=== PATIENT | female | born 1960 | race Caucasian/White ===

== ENCOUNTER → 2016-10-15 | Outpatient (CLI) | payer BC ==
[~2016-10-15] MED LIST: CLON1TAB3 PO; CYM30 PO; LSX20 PO; NLV/20 PO; OMEP20CA9 PO
[2016-10-15 12:45] LABS: FERRITIN 57.4 ng/ml (8.0-388.0); URIC ACID 5.6 mg/dl (2.6-7.2)
--- NOTE | 2016-10-23 09:41 | CODING QUERY MEDICAL NECESSITY ---
CQSUPPORTING DIAGNOSIS NEEDED A supporting diagnosis is required for the test/procedure performed on this patient in order for us to be reimbursed by the patient's insurance. Please provide a supporting diagnosis for the following test/procedure listed below next to the test name along with your signature. *If there is no additional diagnosis for this patient that would support the following test/procedure please document that below next to the test/procedure. Test(s)/Procedure(s) that require a supporting diagnosis: DOS 10/15/16 VITAMIN D TEST VITAMIN B12 TEST Provider Signature: Date: Thank you Teri Long [facility] Information Management Once completed, please kindly fax back to [phone] For questions please call [phone]
== END | disposition home or self-care (01) ==
LOC: C.LABBFT 10:25
PROVIDERS: ATTEND Internal Medicine
DX: R53.83 Other fatigue (principal); M79.644 Pain in right finger(s); M81.0 Age-related osteoporosis without current pathological fracture

== ENCOUNTER → 2017-03-30 | Outpatient (CLI) | payer BC, MEDICARE, OTHER ==
--- NOTE | 2017-03-30 22:42 | DIAGNOSTIC IMAGING REPORT ---
CERVICAL SPINE MRI HISTORY: M79.609 Pain in [id number] Neck painR20.0 Numbness of hand TECHNIQUE: Multiplanar multisequence MRI of the cervical spine was performed without the use of contrast. COMPARISON STUDY: PET CT 06/27/2015. FINDINGS: Straightening of the cervical spine. Alignment is intact. The visualized posterior fossa is unremarkable. The cervical spinal cord is normal in course, caliber, and signal intensity. Slightly heterogeneous marrow pattern at C4-C6, however, no suspicious osseous lesions identified. The prevertebral soft tissues and C1-C2 interval are intact. Mild to moderate disc space narrowing at C4-C5, C5-C6 and C6-C7. C2-C3: No significant central canal or neural foraminal narrowing. C3-C4: No significant central canal or neural foraminal narrowing. C4-C5: Small broad-based posterior disc osteophyte complex resulting in partial effacement of the anterior thecal sac without cord deformity. There is mild left-sided neural foraminal narrowing. C5-C6: Small broad-based posterior disc osteophyte complex resulting in partial effacement of the anterior thecal sac without cord deformity. There is mild bilateral neural foraminal narrowing. C6-C7: Small broad-based posterior disc osteophyte complex resulting in partial effacement of the anterior thecal sac without cord deformity. There is mild left-sided neural foraminal narrowing. C7-T1: No significant central canal or neural foraminal narrowing. IMPRESSION: 1. Mild to moderate degenerative changes within the mid to lower cervical spine as described above. 2. Straightening of the cervical spine. 3. Normal cervical spinal cord. Electronically signed by: Wm Devlin M.D. 03/31/2017 1:52 PM Dictated Date/Time: 03/30/2017 10:33 PM
== END | disposition home or self-care (01) ==
LOC: C.MRI 18:18
PROVIDERS: ATTEND Internal Medicine
DX: M54.2 Cervicalgia (principal); R20.0 Anesthesia of skin; M79.609 Pain in unspecified limb

== ENCOUNTER → 2018-03-03 | Outpatient (CLI) | payer OTHER ==
[~2018-03-03] MED LIST changes: +CIPR-255 PO; -CLON1TAB3 PO; +CLON1TAB4 PO; +ONDA4TAB10 SL; +OPTIRAY 320 IV PRN
--- NOTE | 2018-03-03 12:17 | DIAGNOSTIC IMAGING REPORT ---
CT ABD/PELVIS IV AND ORAL CONT CLINICAL HISTORY: Diverticulitis. Follow-up examination. COMPARISON STUDY: 01/13/2018 TECHNIQUE: Following the IV administration of 93 mL of Optiray-320, CT scan of the abdomen and pelvis was performed from the lung bases to the proximal femurs. Images are reviewed in the axial, sagittal, and coronal planes. IV contrast was administered without complication. A dose lowering technique was utilized adhering to the principles of ALARA. CT DOSE: FINDINGS: Lower chest: There are bilateral breast implants. There are minor dependent atelectatic changes. There is a stable 3 mm right middle lobe pulmonary nodule. Liver: There is severe hepatic steatosis. Hypodense hepatic lesions remain stable and likely represent cysts. Gallbladder: Surgically absent Spleen: Top normal in size. Pancreas: Unremarkable. Adrenal glands: Unremarkable. Kidneys: There is a 12 mm left renal cyst. Each kidney demonstrates an extrarenal pelvis. No solid renal masses are visualized. Bowel: There are no transition zones to indicate bowel obstruction. There is been interval resolution of the previously identified sigmoid diverticulitis. No acute inflammatory changes are visualized. Peritoneum: There is no intraperitoneal free air or abdominal ascites. Vasculature: The abdominal aorta is normal in course and caliber. Adenopathy: None. Pelvic viscera: The uterus appears surgically absent Skeletal structures: No destructive osseous lesions are seen. IMPRESSION: 1. Interval resolution of the previously identified sigmoid diverticulitis 2. Hepatic steatosis. Stable hepatic hypodense lesions likely representing cysts. 3. No evidence of bowel obstruction. No evidence of free air. No acute inflammatory changes. Electronically signed by: Rod Hernandez M.D. 03/03/2018 12:16 PM Dictated Date/Time: 03/03/2018 12:07 PM
== END | disposition home or self-care (01) ==
LOC: C.CTS 12:07
PROVIDERS: ATTEND Physician Assistant Medical
DX: R93.8 Abnormal findings on diagnostic imaging of other specified body structures (principal); K76.0 Fatty (change of) liver, not elsewhere classified

== ENCOUNTER 2021-11-21 13:17 | Inpatient (IN) ==
[2021-11-21 14:01] LABS: Basophils # (auto) 0.02 K/uL (0-0.2); Basophils % (auto) 0.2 %; Eosinophils # (auto) 0.15 K/uL (0-0.5); Eosinophils % (auto) 1.3 %; Hematocrit (blood only) 42.5 % (37-47); Hemoglobin 14.4 g/dL (12.0-16.0); Immature Granulocytes # (auto) 0.03 K/uL (0.00-0.02); Immature Granulocytes % (auto) 0.3 %; Lymphocytes # (auto) 1.52 K/uL (1.2-3.4); Lymphocytes % (auto) 13.4 %; Mean Corpuscular Hemoglobin 29.5 pg (25-34); Mean Corpuscular Hgb Conc 33.9 g/dL (32-36); Mean Corpuscular Volume 87.1 fL (80-100); Monocytes # (auto) 0.73 K/uL (0.11-0.59); Monocytes % (auto) 6.5 %; Neutrophils # (auto) 8.86 K/uL (1.4-6.5); Neutrophils % (auto) 78.3 %; Platelet Count 240 K/uL (130-400); RDW Coefficient of Variation 13.1 % (11.5-14.5); RDW Standard Deviation 42.1 fL (36.4-46.3); Red Blood Count 4.88 M/uL (4.2-5.4); White Blood Count 11.31 K/uL (4.8-10.8)
[2021-11-21 14:30] LABS: Albumin Globulin Ratio 1.2 (0.9-2); Albumin Level 4.7 gm/dl (3.4-5.0); BUN Creatinine Ratio 14.3 (10-20); Bilirubin,Total 1.3 mg/dl (0.2-1.0); Calcium 9.7 mg/dl (8.5-10.1); Creatinine Clr Calc Pharmacy 72.6 ml/min; Est GFR (Non-African American) 69.1 ml/min; Potassium 3.8 mmol/L (3.5-5.1); Total Protein 8.7 gm/dl (6.0-8.3)
[2021-11-21] MEDS ORDERED: KETOROLAC TROMETHAMINE 15 MG/ML VIAL IV STA (15:11)
[2021-11-21] MEDS ORDERED: ONDANSETRON INJ 2 MG/ML 2 ML VIAL IV STA (15:11)
[2021-11-21] MEDS ORDERED: SODIUM CHLORIDE 0.9% 1000ML 1,000 ML IV ONE (15:11)
[2021-11-21] MEDS ORDERED: OPTIRAY 320 100ml IV ONE (15:59)
--- NOTE | 2021-11-21 16:29 | CT Scan Report ---
CT abd pelvis IV con only CLINICAL HISTORY: llq pain . Recent diagnosis of sigmoid diverticulitis COMPARISON STUDY: 11/16/2021 CT DOSE: 769.92 mGy.cm TECHNIQUE: Standard CT of the Abdomen and Pelvis was performed with IV contrast. A dose lowering isaak hnique was utilized adhering to the principles of ALARA. Contrast Volume: Optiray 320, 93 ml. The patient did not receive oral contrast. FINDINGS: Lung base: The lung bases are clear. Abdominal cavity: There is no evidence for abdominal mass, adenopathy or ascites. Liver: Diffuse fatty infiltration of the liver and hepatic cysts are again seen. There is no evidence for enhancing mass lesion. Spleen: There is homogeneous attenuation of the splenic parenchyma. There is no enhancing mass lesion . Pancreas: There is homogeneous attenuation of the pancreatic parenchyma. There is no evidence for mas s lesion or peripancreatic fluid collection. Gall Bladder: Surgical clips are again seen. Adrenal glands: The adrenal glands are normal in size and attenuation. There is no evidence for enhan cing mass lesion. Kidneys: There is homogeneous attenuation of the renal parenchyma bilaterally. There is no evidence f or renal calculus or hydronephrosis. There is no evidence for enhancing mass. There is again evidence for left renal cyst. Bowel: Compared to the previous examination, there is slight worsening of sigmoid diverticulitis with increasing pericolonic inflammatory changes and edema. Minimal extraluminal air is seen at this site with no additional free air or abscess formation. No pelvic ascites is seen. The remaining bowel loops are normally placed within the abdomen and pelvis without evidence for dil atation or obstruction. There is no evidence for mass lesion. There is no evidence for free air. Bladder: The bladder is within normal limits with no evidence for focal mass, calculus or diverticulu m. : There is no evidence for pelvic mass or adenopathy. There is no evidence for pelvic ascites. Vasculature: There is no evidence for aneurysmal dilatation of the abdominal aorta. Osseous structures: There is no acute osseous pathology. IMPRESSION: 1. Mild interval worsening of acute sigmoid diverticulitis with increasing inflammatory changes in. S igmoidal edema and fluid. Minimal extraluminal air is seen at this site with no evidence for addition al free air or abscess formation. No free pelvic ascites is identified. ACT 112: Negative or not required by law. Electronically signed by: Adán Baptiste M.D. 11/21/2021 4:28 PM
[2021-11-21] MEDS ORDERED: PIPERACILLIN/TAZOBACTAM 4.5 GM/120 ML BAG IV ONE (16:36)
--- NOTE | 2021-11-21 16:57 | History & Physical Report ---
Date of Service November 21, 2021 Assessment & Plan (1) Sigmoid diverticulitis: Plan: -Failed outpatient Augmentin. -Surgery consulted due to microperforation, no surgical intervention at this time. -Zosyn 4.5 g IV every 8 -N.p.o. for 48 hours, may have ice chips. -Toradol, Tylenol for pain control, patient wishes to avoid opioids due to allergic reactions in the past. -Anti-emetics ordered. -Repeat CBC in AM. (2) Depression: Plan: -Continue duloxetine 30 mg daily when tolerating PO intake. (3) GERD (gastroesophageal reflux disease): Plan: -Continue Pepcid when tolerating PO intake. (4) History of breast cancer: Plan: -Patient has LUE edema, takes Lasix 20 mg daily. -S/P b/l mastectomy. Plan: -Admit to med/surg. -SCDs, lovenox for DVT ppx. -Full Code. History of Present Illness Chief Complaint: worsening abdominal pain x1 days Primary Care Provider: Rodolfo Trinidad MD Patient is a 61-year-old female with a past medical history of depression/anxiety, GERD, breast cancer in 2013 s/p b/l mastectomy with chronic lymphedema and diverticulitis diagnosed in our ED on 11/16 presents with worsening symptoms. Patient was seen here on 11/16 for abdominal pain, CT revealed sigmoid diverticulitis without perforation or abscess. She was given IVF, IV Zofran, IV Zosyn and discharged from ED on Augmentin, also instructed to remain on clear liquid diet for the next several days. Since then, she has been taking her antibiotics with yogurt and sticking to a liquid diet with minimal improvement Yesterday, she experienced severe cramping sensation across her abdomen. Last evening, she felt very cold and could not get warm with multiple layers of clothing on. She took a temperature around 1 AM, measured at 101.5. This afternoon seemingly out of nowhere she vomited several times, which prompted her presentation to ED for further evaluation. Feels she may have noticed some blood in her stool over the past several days, she reports to have been pretty dark and tarry. She is otherwise without symptoms, no chest pain/palpitations, shortness of breath, cough, diarrhea, constipation, overt hematochezia or hematemesis. In ED, VS stable, wnl. Labs significant for WBC 11.31, otherwise unremarkable. CT A/P showed mild interval worsening of acute sigmoid diverticulitis with increasing inflammatory changes in. Sigmoidal edema and fluid. Minimal extraluminal air is seen at this site with no evidence for additional free air or abscess formation. No free pelvic ascites is identified. Surgery was consulted due to concern for microperforation, hospitalist service consulted for further evaluation and admission. Allergies Allergy/AdvReac Type Severity Reaction Status Date / Time codeine Allergy Unknown ANAPHYLAXIS Verified 11/21/21 16:44 opium tincture Allergy Unknown "BREATHING Verified 11/21/21 16:44 PASSAGE SHUT DOWN" Home Medications Medication Instructions Recorded Confirmed Type duloxetine 30 mg capsule,delayed 30 mg PO DAILY #90 cap 05/02/21 11/21/21 Rx release furosemide 20 mg tablet 20 mg PO QAM #90 tab 05/02/21 11/21/21 Rx ondansetron 4 mg disintegrating 4 mg PO Q6H PRN #20 tab 05/23/21 11/21/21 Rx tablet famotidine 40 mg tablet 40 mg PO BID PRN #180 tab 09/25/21 11/21/21 Rx amoxicillin 875 mg-potassium 1 tab PO BID #20 tab 11/16/21 11/21/21 Rx clavulanate 125 mg tablet Past Med/Surg History Medical History Anxiety Breast cancer 2013 RIGHT, BILATERAL MASTECTOMY AND TAMOXIFEN Depression Encounter for breast reconstruction following mastectomy Fatty liver BORDERLINE, TOLD ABOUT YRS AGO GERD (gastroesophageal reflux disease) GERD (gastroesophageal reflux disease) History of anesthesia reaction PONV AND SEVERE HEADACHES AFTER ANESTHESIA History of cardiac murmur History of kidney stones Hypotension Infected surgical wound PONV (postoperative nausea and vomiting) PTSD (post-traumatic stress disorder) Sepsis Tachycardia Surgical History H/O: hysterectomy History of appendectomy History of cardiac cath AGE 19 (R/O HEART CONDITION, HEART STOPPED DURING CHILDBIRTH) AND 10 YRS AGO (C/P , SWEATING , NUMBNESS/TINGLING ARM) - NO FINDINGS , NO STENTS History of cholecystectomy History of colonoscopy (04/27/17) Dr Camacho, [place], normal, recheck in 5 years History of endoscopy History of mastectomy BILATERAL History of tubal ligation AND REVERSAL S/p breast implant removal (~04/2020) Bilateral Breast Implant Removal With Capsulectomy(Bilateral) - Arcelia Sainz MD Family History Other COPD (chronic obstructive pulmonary disease) Family history of diabetes mellitus Social History Smoking Status: Never smoker Hx Alcohol Use: No Hx Substance Use: No Preferred Language: Citizen Of [place] Communication Ability: Effective 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 Beliefs That Will Affect Care: None marital status: Current Living Situation: Significant Other Feels Safe at Home: Yes Sunscreen Use: No Assistive Devices: Glasses Review of Systems Review of Systems: Constitutional: fever/chills since last evening; no weakness, fatigue, myalgias, anorexia, night sweats Eyes: No diplopia, no worsening or blurred vision ENT: normal hearing, no trouble swallowing Respiratory: No cough, sputum, dyspnea at rest or on exertion Cardiovascular: No chest pain, tightness or palpitations Abdomen: cramping abdominal pain yesterday and today with nausea, vomiting x3; no diarrhea or constipation : Denies dysuria, hematuria, increased urgency/frequency, urinary retention Musculoskeletal: No joint pain, calf pain, swelling Neurologic: No weakness, numbness/tingling, or balance problems Psychiatric: No anxiety or depression Skin: No rash or itch Physical Exam Physical Exam: General: awake, alert, no apparent distress Head: Normocephalic, atraumatic ENT: PERRL, EOMI, no pharyngeal exudate, mucous membranes moist Chest: Clear to auscultation, on room air, no adventitious breath sounds Cardiac: Regular rate and rhythm, no murmur, no JVD, normal peripheral pulses, good capillary refill Abdominal: Tender to palpation in left lower quadrant with radiation to right lower quadrant. Extremities: Normal inspection, no peripheral edema or erythema, calfs nontender to palpation Psych: Normal mood and affect Neuro: AAO x 3, strength intact bilaterally and rated 5/5, no motor deficits, speech is clear, no peripheral sensory deficits Skin: no rash or erythema Results & Data Results & Data ([facility]) Vital Signs (Past 12 Hours) Vital Signs Temp Pulse Pulse Resp BP BP Pulse Ox 11/21/21 15:40 86 20 118/56 L 97 11/21/21 13:21 36.9 C 100 H 18 139/77 94 Laboratory Results Abnormal lab results 11/21/21 11/21/21 Range/Units 13:45 13:45 WBC 11.31 H (4.8-10.8) K/uL MPV 11.0 H (7.4-10.4) fL Neut # (Auto) 8.86 H (1.4-6.5) K/uL [place] # (Auto) 0.73 H (0.11-0.59) K/uL Immature Gran # (Auto) 0.03 H (0.00-0.02) K/uL Total Bilirubin 1.3 H (0.2-1.0) mg/dl Total Protein 8.7 H (6.0-8.3) gm/dl Lipase 4 L (11-82) U/L Diagnostic Findings Abdomen/Pelvis CT 11/21/21 15:12 CT abd pelvis IV con only CLINICAL HISTORY: llq pain . Recent diagnosis of sigmoid diverticulitis COMPARISON STUDY: 11/16/2021 CT DOSE: 769.92 mGy.cm TECHNIQUE: Standard CT of the Abdomen and Pelvis was performed with IV contrast. A dose lowering technique was utilized adhering to the principles of ALARA. Contrast Volume: Optiray 320, 93 ml. The patient did not receive oral contrast. FINDINGS: Lung base: The lung bases are clear. Abdominal cavity: There is no evidence for abdominal mass, adenopathy or ascites. Liver: Diffuse fatty infiltration of the liver and hepatic cysts are again seen. There is no evidence for enhancing mass lesion. Spleen: There is homogeneous attenuation of the splenic parenchyma. There is no enhancing mass lesion. Pancreas: There is homogeneous attenuation of the pancreatic parenchyma. There is no evidence for mass lesion or peripancreatic fluid collection. Gall Bladder: Surgical clips are again seen. Adrenal glands: The adrenal glands are normal in size and attenuation. There is no evidence for enhancing mass lesion. Kidneys: There is homogeneous attenuation of the renal parenchyma bilaterally. There is no evidence for renal calculus or hydronephrosis. There is no evidence for enhancing mass. There is again evidence for left renal cyst. Bowel: Compared to the previous examination, there is slight worsening of sigmoid diverticulitis with increasing pericolonic inflammatory changes and edema. Minimal extraluminal air is seen at this site with no additional free air or abscess formation. No pelvic ascites is seen. The remaining bowel loops are normally placed within the abdomen and pelvis without evidence for dilatation or obstruction. There is no evidence for mass lesion. There is no evidence for free air. Bladder: The bladder is within normal limits with no evidence for focal mass, calculus or diverticulum. : There is no evidence for pelvic mass or adenopathy. There is no evidence for pelvic ascites. Vasculature: There is no evidence for aneurysmal dilatation of the abdominal aorta. Osseous structures: There is no acute osseous pathology. IMPRESSION: 1. Mild interval worsening of acute sigmoid diverticulitis with increasing inflammatory changes in. Sigmoidal edema and fluid. Minimal extraluminal air is seen at this site with no evidence for additional free air or abscess formation. No free pelvic ascites is identified. ACT 112: Negative or not required by law. Electronically signed by: Adán Baptiste M.D. 11/21/2021 4:28 PM Code Status & VTE Plan Code Status Full code. Supervising Physician Co-Signing Physician Notes I personally saw and examined the patient. I verified all reyes points and agree with Mey Hutchison PA-C with the following exceptions and/or additions: 61 yo female admission for abdominal pain for 1 week. Diagnosed with acute diverticulitits and treated as outpatient with oral Augmentin. However due to worsening symptoms starting yesterday with associated fever and chills and vomiting. O/E HS1+2, no murmurs, Chest CTAB, Abd worse LLQ but tender throughout with associated guarding and rebound tenderness A/P Acute diverticulitis with failed outpatient treatment and microperforation - NPO, IVF, Zosyn PG Care Time/CCT Total # of Minutes Spent Total Time Spent with Patient: Total time spent is greater than 50% in coordination of care (as documented) at patient's floor/unit and/or counseling patient: Coding Level of Care Code 73494 Initial Inpt Care Lvl 2 Diagnoses Sigmoid diverticulitis K57.32 Depression F32.9 GERD (gastroesophageal reflux disease) K21.9 History of breast cancer Z85.3
--- NOTE | 2021-11-21 17:51 | Surgery Consultation ---
Date of Consultation November 21, 2021 Assessment & Plan (1) Sigmoid diverticulitis: Patient likely has a contained perforation Would limit her to ice only for 48 hours IV antibiotics for 3 to 4 days If she worsens or we are concerned can repeat her CAT scan We will slowly advance her diet after 48 hours History of Present Illness History of Present Illness 61-year-old female admitted to the emergency room with acute diverticulitis with likely microperforation with no abscess or significant fluid She is also emergency room on the and sent home on antibiotics and bowel rest with clear liquids She said the pain did get significantly worse Repeat cell count is 11.3 Allergies Allergy/AdvReac Type Severity Reaction Status Date / Time codeine Allergy Unknown ANAPHYLAXIS Verified 11/21/21 16:44 opium tincture Allergy Unknown "BREATHING Verified 11/21/21 16:44 PASSAGE SHUT DOWN" Home Medications Medication Instructions Recorded Confirmed Type duloxetine 30 mg capsule,delayed 30 mg PO DAILY #90 cap 05/02/21 11/21/21 Rx release furosemide 20 mg tablet 20 mg PO QAM #90 tab 05/02/21 11/21/21 Rx ondansetron 4 mg disintegrating 4 mg PO Q6H PRN #20 tab 05/23/21 11/21/21 Rx tablet famotidine 40 mg tablet 40 mg PO BID PRN #180 tab 09/25/21 11/21/21 Rx amoxicillin 875 mg-potassium 1 tab PO BID #20 tab 11/16/21 11/21/21 Rx clavulanate 125 mg tablet Patient History Medical History Anxiety Breast cancer 2013 RIGHT, BILATERAL MASTECTOMY AND TAMOXIFEN Depression Encounter for breast reconstruction following mastectomy Fatty liver BORDERLINE, TOLD ABOUT YRS AGO GERD (gastroesophageal reflux disease) GERD (gastroesophageal reflux disease) History of anesthesia reaction PONV AND SEVERE HEADACHES AFTER ANESTHESIA History of cardiac murmur History of kidney stones Hypotension Infected surgical wound PONV (postoperative nausea and vomiting) PTSD (post-traumatic stress disorder) Sepsis Tachycardia Surgical History H/O: hysterectomy History of appendectomy History of cardiac cath AGE 19 (R/O HEART CONDITION, HEART STOPPED DURING CHILDBIRTH) AND 10 YRS AGO (C/P , SWEATING , NUMBNESS/TINGLING ARM) - NO FINDINGS , NO STENTS History of cholecystectomy History of colonoscopy (04/27/17) Dr Camacho, [place], normal, recheck in 5 years History of endoscopy History of mastectomy BILATERAL History of tubal ligation AND REVERSAL S/p breast implant removal (~04/2020) Bilateral Breast Implant Removal With Capsulectomy(Bilateral) - Arcelia Sainz MD Family History Other COPD (chronic obstructive pulmonary disease) Family history of diabetes mellitus Social History Smoking Status: Never smoker Hx Alcohol Use: No Hx Substance Use: No Preferred Language: [place] Communication Ability: Effective Transit Mechanic Required: No Beliefs That Will Affect Care: None marital status: Current Living Situation: Significant Other Feels Safe at Home: Yes Sunscreen Use: No Assistive Devices: Walker Review of Systems Review of Systems: All systems reviewed & are unremarkable except as noted in HPI & below Physical Exam Physical Exam: Patient is awake and alert in no distress Constitutional: well nourished; no acute distress Eyes: + anicteric sclerae Respiratory: normal respiratory effort; no respiratory distress Cardiovascular: Rate/Rhythm: regular rate Gastrointestinal (Abdomen): Inspection/Auscultation: abdomen not distended Patient has tenderness in left lower quadrant Musculoskeletal: Head/Neck/Chest: head atraumatic Skin: no rashes, warm and dry Neurologic: awake Psychiatric: Orientation: alert Results & Data ([facility]) Vital Signs (Past 12 Hours) Vital Signs Temp Pulse Pulse Resp BP BP Pulse Ox 11/21/21 17:30 81 18 84/70 L 97 11/21/21 15:40 86 20 118/56 L 97 11/21/21 13:21 36.9 C 100 H 18 139/77 94 Laboratory Results I reviewed her laboratories Diagnostic Findings I reviewed her CAT scan reports and films PG Care Time/CCT Total # of Minutes Spent Total Time Spent with Patient: Total time spent is greater than 50% in coordination of care (as documented) at patient's floor/unit and/or counseling patient: Coding Level of Care Code 55755 Inpt Consult Level 3 Diagnoses Sigmoid diverticulitis K57.32
--- NOTE | 2021-11-21 18:03 | Emergency Department Note ---
History of Present Illness General Chief Complaint: GI Assessment Stated Complaint: DIVERTICULITIS FARE UP, DIARRHEA, FEVER, Time Seen by Provider: 11/21/21 15:10 History of Present Illness Provider Complaint: abdominal pain Onset (ago): 6 day(s) Pain Consistency: constant Location: LLQ Radiation: none Severity: moderate Maximum Pain Intensity: 4 Current Pain Intensity: 4 Quality: + stabbing and + sharp Relieved By: + nothing Exacerbated By: + nothing Context: + recent antibiotic use (On Augmentin after being diagnosed with diverticulitis on Thursday, 6 days ago. Patient started antibiotics 6 days ago.); no foreign travel, no possible food poisoning, no sick contacts, no recent surgery/procedure or no recent injury Associated Symptoms: + nausea, + vomiting and + fever; no diarrhea, no chills, no constipation, no dysuria, no hematemesis, no hematochezia, no melena, no hematuria, no anorexia, no syncope, no headache, no neck pain, no chest pain and no weakness Home Medications Medication Instructions Recorded Confirmed Type duloxetine 30 mg capsule,delayed 30 mg PO DAILY #90 cap 05/02/21 11/21/21 Rx release furosemide 20 mg tablet 20 mg PO QAM #90 tab 05/02/21 11/21/21 Rx ondansetron 4 mg disintegrating 4 mg PO Q6H PRN #20 tab 05/23/21 11/21/21 Rx tablet famotidine 40 mg tablet 40 mg PO BID PRN #180 tab 09/25/21 11/21/21 Rx amoxicillin 875 mg-potassium 1 tab PO BID #20 tab 11/16/21 11/21/21 Rx clavulanate 125 mg tablet Allergies Allergy/AdvReac Type Severity Reaction Status Date / Time codeine Allergy Unknown ANAPHYLAXIS Verified 11/21/21 16:44 opium tincture Allergy Unknown "BREATHING Verified 11/21/21 16:44 PASSAGE SHUT DOWN" Past Med/Surg History Medical History Anxiety Breast cancer 2013 RIGHT, BILATERAL MASTECTOMY AND TAMOXIFEN Depression Encounter for breast reconstruction following mastectomy Fatty liver BORDERLINE, TOLD ABOUT YRS AGO GERD (gastroesophageal reflux disease) GERD (gastroesophageal reflux disease) History of anesthesia reaction PONV AND SEVERE HEADACHES AFTER ANESTHESIA History of cardiac murmur History of kidney stones Hypotension Infected surgical wound PONV (postoperative nausea and vomiting) PTSD (post-traumatic stress disorder) Sepsis Tachycardia Surgical History H/O: hysterectomy History of appendectomy History of cardiac cath AGE 19 (R/O HEART CONDITION, HEART STOPPED DURING CHILDBIRTH) AND 10 YRS AGO (C/P , SWEATING , NUMBNESS/TINGLING ARM) - NO FINDINGS , NO STENTS History of cholecystectomy History of colonoscopy (04/27/17) [place], normal, recheck in 5 years History of endoscopy History of mastectomy BILATERAL History of tubal ligation AND REVERSAL S/p breast implant removal (~04/2020) Bilateral Breast Implant Removal With Capsulectomy(Bilateral) - Arcelia Sainz MD Family History Other COPD (chronic obstructive pulmonary disease) Family history of diabetes mellitus Social History Smoking Status: Never smoker Hx Alcohol Use: No Hx Substance Use: No Preferred Language: Urdu Communication Ability: Effective Paint 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 Required: No Beliefs That Will Affect Care: None marital status: Current Living Situation: Significant Other Feels Safe at Home: Yes Sunscreen Use: No Assistive Devices: Walker Review of Systems A total of 10 systems reviewed and were otherwise negative Physical Exam Vital Signs: Vital Signs - 24 hr 11/21/21 13:21 11/21/21 15:40 Temperature 36.9 C Temperature Source Oral Pulse Rate 100 H Pulse Rate [Apical ] 86 Respiratory Rate 18 20 Respiratory Effort / Characteristics Non-Labored Sponta neous Respiratory Depth Normal Respiratory Patter n Regular Blood Pressure 139/77 Blood Pressure [Le ft Arm] 118/56 L Blood Pressure Alice n 97 Blood Pressure Alice n [Left Arm] 76 Pulse Oximetry 94 97 Oxygen Delivery Me thod Room Air Room Air Sepsis Recent Feve r Within 48 Hours No Sepsis New/Unexpla ined Change in Men cullen Status No Sepsis Action Take n by Nursing No Action Required Physical Exam: Physical Exam GENERAL: She is oriented to person, place, and time. She appears well-developed and well-nourished. She does not appear distressed. HENT: Exam performed. -Head: Normocephalic and atraumatic. -Right Ear: External ear normal. No mastoid tenderness. -Left Ear: External ear normal. No mastoid tenderness. -Mouth/Throat: The oropharynx is clear and moist. No trismus in the jaw. No dental abscesses or uvula swelling. No oropharyngeal exudate or tonsillar abscesses. EYES: Conjunctivae and EOM are normal. Pupils are equal, round, and reactive to light. Right eye exhibits no discharge. Left eye exhibits no discharge. No scleral icterus. NECK: Normal range of motion. Neck supple. No JVD present. No spinous process tenderness present. No carotid bruit present. No rigidity. No tracheal deviation and normal range of motion present. No Brudzinski's sign and no Kernig's sign noted. CV: Normal rate, regular rhythm, normal heart sounds and intact distal pulses. There is no peripheral edema. Palpable radial pulses bue. PULM/CHEST: Effort normal and breath sounds normal. No respiratory distress. No stridor. She has no wheezes. She has no rales. -Chest Wall: She exhibits no tenderness. ABD: The abdomen is soft. Bowel sounds are normal. She has no distension. No mass is present. There is tenderness to palpation of the left lower quadrant There is no rebound, no guarding, no Harrison's sign and no tenderness at McBurney's point. Rovsig negative MUSC/SKEL: Normal range of motion. There is no peripheral edema, tenderness or deformity. LYMPH: No cervical adenopathy. NEURO: She is alert and oriented to person, place, and time. She has normal strength. No cranial nerve deficit or sensory deficit. Coordination and gait normal. GCS eye subscore is 4. GCS verbal subscore is 5. GCS motor subscore is 6. Cerebellar tests wnl. SKIN: Skin is warm and dry. She is not diaphoretic. PSYCH: She has a normal mood and affect. Behavior is normal. Judgment and thought content normal. Course Course 151: The patient was evaluated in room C12. A complete history and physical exam was performed Cardiac monitoring: An order was placed for continuous cardiac monitoring. The monitor shows a rate of 90 with sinus rhythm 1740: Vital signs stable. Labs within normal limits. Imaging shows a worsening of the diverticulitis with a microperforation. Discussed case with general surgery Dr. Robbins who will evaluate the patient be on consult. Discussed case with [facility] hospitalist Dr. Rai who will admit the patient to his service. Antibiotics ordered for the patient. Administered Medications Acetaminophen (Acetaminophen 1000 Mg/100 Ml Iv) 1,000 mg IV Q8H PRN PRN Reason: Pain or Fever Stop: 11/24/21 20:14 Last Admin: 11/21/21 21:07 Dose: 1,000 mg Documented by: [id number] Enoxaparin Sodium (Enoxaparin Inj 40 Mg/0.4 Ml Syr) 40 mg SQ Q24H YOKASTA Stop: 12/21/21 20:06 Last Admin: 11/21/21 21:14 Dose: 40 mg Documented by: [id number] Lactated Ringer's (Lr) 1,000 mls @ 80 mls/hr IV .[id number] YOKASTA Stop: 12/21/21 18:27 Last Admin: 11/21/21 18:48 Dose: 80 mls/hr Documented by: [id number] Piperacillin Sod/Tazobactam (Sod 3.375 gm/ Dextrose) 115 mls @ 28.75 mls/hr IV Q8 YOKASTA; Protocol Stop: 12/01/21 21:14 Last Admin: 11/21/21 22:13 Dose: 28.8 mls/hr Documented by: [id number] Discontinued Medications Sodium Chloride (Nss 1000ml) 1,000 mls @ 999 mls/hr IV .[id number] ONE Stop: 11/21/21 16:11 Last Infusion: 11/21/21 16:45 Dose: 0 mls/hr Documented by: [id number] Admin: 11/21/21 15:43 Dose: 999 mls/hr Documented by: [id number] Piperacillin Sod/Tazobactam Sod (Zosyn) 4.5 gm in 120 mls @ 240 mls/hr IV NOW ONE Stop: 11/21/21 17:05 Last Infusion: 11/21/21 17:17 Dose: 0 mls/hr Documented by: [id number] Admin: 11/21/21 16:45 Dose: 240 mls/hr Documented by: [id number] Ioversol (Optiray 320 100ml) 93 ml IV ONCE ONE Stop: 11/21/21 16:00 Last Admin: 11/21/21 16:00 Dose: 93 ml Documented by: [id number] Ketorolac Tromethamine (Ketorolac Tromethamine 15 Mg/Ml Vial) 15 mg IV NOW STA Stop: 11/21/21 15:12 Last Admin: 11/21/21 15:45 Dose: 15 mg Documented by: [id number] Ondansetron HCl (Ondansetron Inj 2 Mg/Ml 2 Ml Vial) 4 mg IV NOW STA Stop: 11/21/21 15:12 Last Admin: 11/21/21 15:45 Dose: 4 mg Documented by: [id number] Medical Decision Making Laboratory Data Result diagrams: 11/21/21 13:45 11/21/21 13:45 Lab Results 11/21/21 11/21/21 11/21/21 Range/Units 13:45 13:45 16:51 WBC 11.31 H (4.8-10.8) K/uL RBC 4.88 (4.2-5.4) M/uL Hgb 14.4 (12.0-16.0) g/dL Hct 42.5 (37-47) % MCV 87.1 (80-100) fL MCH 29.5 (25-34) pg MCHC 33.9 (32-36) g/dL RDW Std Deviation 42.1 (36.4-46.3) fL RDW Coeff of Yogesh 13.1 (11.5-14.5) % Plt Count 240 (130-400) K/uL MPV 11.0 H (7.4-10.4) fL Immature Gran % (Auto) 0.3 % Neut % (Auto) 78.3 % Lymph % (Auto) 13.4 % Lee % (Auto) 6.5 % Eos % (Auto) 1.3 % Baso % (Auto) 0.2 % Neut # (Auto) 8.86 H (1.4-6.5) K/uL Lymph # (Auto) 1.52 (1.2-3.4) K/uL Lee # (Auto) 0.73 H (0.11-0.59) K/uL Eos # (Auto) 0.15 (0-0.5) K/uL Baso # (Auto) 0.02 (0-0.2) K/uL Immature Gran # (Auto) 0.03 H (0.00-0.02) K/uL Sodium 136 (136-145) mmol/L Potassium 3.8 (3.5-5.1) mmol/L Chloride 102 (98-107) mmol/L Carbon Dioxide 24 (21-32) mmol/L Anion Gap 10 (3-11) BUN 13 (6-23) mg/dl Creatinine 0.91 (0.6-1.2) mg/dl Est Cr Clr Drug Dosing 72.6 ml/min Est GFR ( Amer) 80.0 ml/min Est GFR (Non-Af Amer) 69.1 ml/min BUN/Creatinine Ratio 14.3 (10-20) Glucose 97 (70-99(Fasting)) mg/dl Calcium 9.7 (8.5-10.1) mg/dl Total Bilirubin 1.3 H (0.2-1.0) mg/dl AST 17 (13-39) U/L ALT 18 (7-52) U/L Alkaline Phosphatase 78 (34-104) U/L Total Protein 8.7 H (6.0-8.3) gm/dl Albumin 4.7 (3.4-5.0) gm/dl Globulin 4.0 (2.5-4.0) gm/dl Albumin/Globulin Ratio 1.2 (0.9-2) Lipase 4 L (11-82) U/L SARS-CoV-2, RNA, NAAT NEGATIVE (NEGATIVE) Imaging Data Radiologist's Impression: Abdomen/Pelvis CT 11/21/21 15:12 CT abd pelvis IV con only CLINICAL HISTORY: llq pain . Recent diagnosis of sigmoid diverticulitis COMPARISON STUDY: 11/16/2021 CT DOSE: 769.92 mGy.cm TECHNIQUE: Standard CT of the Abdomen and Pelvis was performed with IV contrast. A dose lowering technique was utilized adhering to the principles of ALARA. Contrast Volume: Optiray 320, 93 ml. The patient did not receive oral contrast. FINDINGS: Lung base: The lung bases are clear. Abdominal cavity: There is no evidence for abdominal mass, adenopathy or ascites. Liver: Diffuse fatty infiltration of the liver and hepatic cysts are again seen. There is no evidence for enhancing mass lesion. Spleen: There is homogeneous attenuation of the splenic parenchyma. There is no enhancing mass lesion. Pancreas: There is homogeneous attenuation of the pancreatic parenchyma. There is no evidence for mass lesion or peripancreatic fluid collection. Gall Bladder: Surgical clips are again seen. Adrenal glands: The adrenal glands are normal in size and attenuation. There is no evidence for enhancing mass lesion. Kidneys: There is homogeneous attenuation of the renal parenchyma bilaterally. There is no evidence for renal calculus or hydronephrosis. There is no evidence for enhancing mass. There is again evidence for left renal cyst. Bowel: Compared to the previous examination, there is slight worsening of sigmoid diverticulitis with increasing pericolonic inflammatory changes and edema. Minimal extraluminal air is seen at this site with no additional free air or abscess formation. No pelvic ascites is seen. The remaining bowel loops are normally placed within the abdomen and pelvis without evidence for dilatation or obstruction. There is no evidence for mass lesion. There is no evidence for free air. Bladder: The bladder is within normal limits with no evidence for focal mass, calculus or diverticulum. : There is no evidence for pelvic mass or adenopathy. There is no evidence for pelvic ascites. Vasculature: There is no evidence for aneurysmal dilatation of the abdominal aorta. Osseous structures: There is no acute osseous pathology. IMPRESSION: 1. Mild interval worsening of acute sigmoid diverticulitis with increasing inflammatory changes in. Sigmoidal edema and fluid. Minimal extraluminal air is seen at this site with no evidence for additional free air or abscess formation. No free pelvic ascites is identified. ACT 112: Negative or not required by law. Electronically signed by: Adán Baptiste M.D. 11/21/2021 4:28 PM MDM Narrative Vital signs stable. Labs within normal limits. Imaging shows a worsening of the diverticulitis with a microperforation. Discussed case with general surgery Dr. Robbins who will evaluate the patient be on consult. Discussed case with [facility] hospitalist Dr. Rai who will admit the patient to his service. Antibiotics ordered for the patient. Impression & Plan Diverticulitis Discharge Plan Visit Data Chief Complaint: GI Assessment Stated Complaint: DIVERTICULITIS FARE UP, DIARRHEA, FEVER, Discharge Problem: Diverticulitis Patient Disposition: Admitted As Inpatient Discharge Instructions Interventions: ED Discharge Assessment Last Done: 11/21/21 19:58
[2021-11-21] MEDS: LACTATED RINGER'S 1,000 ML IV SCH (18:48)
[2021-11-21] MEDS ORDERED: PIPERACILL/TAZOBAC CONSULT ACTIVE PRN (20:07)
[2021-11-21] MEDS ORDERED: ONDANSETRON INJ 2 MG/ML 2 ML VIAL IV PRN (20:07)
[2021-11-21] MEDS: ACETAMINOPHEN 1000 MG/100 ML IV IV PRN (21:07)
[2021-11-21] MEDS: ENOXAPARIN INJ 40 MG/0.4 ML SYR SQ SCH (21:14)
[2021-11-21] MEDS: PIPERACILLIN/TAZOBACTAM 3.375 GM in DEXTROSE 5% 100 ML IV SCH (22:13)
[2021-11-22] MEDS ORDERED: PIPERACILLIN/TAZOBACTAM 4.5 GM in DEXTROSE 5% 100 ML IV SCH (00:05)
[2021-11-22] MEDS: LACTATED RINGER'S 1,000 ML IV SCH ×2 (05:39→17:03)
[2021-11-22] MEDS: PIPERACILLIN/TAZOBACTAM 3.375 GM in DEXTROSE 5% 100 ML IV SCH ×3 (05:40→21:10)
[2021-11-22 07:53] LABS: Basophils # (auto) 0.02 K/uL (0-0.2); Basophils % (auto) 0.3 %; Eosinophils # (auto) 0.18 K/uL (0-0.5); Eosinophils % (auto) 2.7 %; Hematocrit (blood only) 35.8 % (37-47); Hemoglobin 12.1 g/dL (12.0-16.0); Immature Granulocytes # (auto) 0.01 K/uL (0.00-0.02); Immature Granulocytes % (auto) 0.1 %; Lymphocytes # (auto) 1.12 K/uL (1.2-3.4); Lymphocytes % (auto) 16.6 %; Mean Corpuscular Hemoglobin 29.6 pg (25-34); Mean Corpuscular Hgb Conc 33.8 g/dL (32-36); Mean Corpuscular Volume 87.5 fL (80-100); Mean Platelet Volume 10.9 fL (7.4-10.4); Monocytes # (auto) 0.58 K/uL (0.11-0.59); Monocytes % (auto) 8.6 %; Neutrophils # (auto) 4.84 K/uL (1.4-6.5); Neutrophils % (auto) 71.7 %; Platelet Count 184 K/uL (130-400); Red Blood Count 4.09 M/uL (4.2-5.4); White Blood Count 6.75 K/uL (4.8-10.8)
[2021-11-22] MEDS: DULoxetine HCL 30 MG CAP PO SCH (08:16)
[2021-11-22] MEDS: FAMOTIDINE 20 MG in SYRINGE 3 ML IV SCH (08:16)
[2021-11-22 08:19] LABS: Albumin Globulin Ratio 1.1 (0.9-2); Albumin Level 3.5 gm/dl (3.4-5.0); BUN Creatinine Ratio 15.2 (10-20); Calcium 8.4 mg/dl (8.5-10.1); Creatinine Clr Calc Pharmacy 83.9 ml/min; Est GFR (Non-African American) 81.9 ml/min; Globulin 3.1 gm/dl (2.5-4.0); Potassium 3.7 mmol/L (3.5-5.1); Total Protein 6.6 gm/dl (6.0-8.3)
[2021-11-22] MEDS: ACETAMINOPHEN 325 MG TAB PO PRN (08:20)
[2021-11-22] MEDS ORDERED: FUROSEMIDE 20 MG TAB PO SCH ×2 (09:00)
--- NOTE | 2021-11-22 10:01 | Surgery Progress Note ---
Date of Service November 22, 2021 Assessment & Plan (1) Diverticulitis: Plan: Continue n.p.o. today except ice Possible clear liquids tomorrow and advance very slowly Continue IV antibiotics till at least Thursday or Thursday Dr. Barrow will be following over the weekend Admission and Anticipated Discharge Date Admission Date: November 21, 2021 Subjective Patient awake and alert Pain is somewhat less Vital signs are stable Review of Systems Review of Systems: All systems reviewed & are unremarkable except as noted in HPI & below Physical Exam Physical Exam: Patient's vital signs are stable Awake and alert Pain is mildly better Results & Data ([place]) Vital Signs (Past 12 Hours) Vital Signs Temp Pulse Resp BP Pulse Ox 11/22/21 07:43 36.9 C 17 104/70 94 11/21/21 23:19 36.8 C 73 18 110/71 94 PG Care Time/CCT Total # of Minutes Spent Total Time Spent with Patient: Total time spent is greater than 50% in coordination of care (as documented) at patient's floor/unit and/or counseling patient: Coding Level of Care Code 19218 Inpt Consult Level 2 Diagnoses Diverticulitis K57.92
--- NOTE | 2021-11-22 14:04 | Hospitalist Progress Note ---
Date of Service November 22, 2021 Assessment & Plan (1) Sigmoid diverticulitis: Plan: -Failed outpatient Augmentin. -Appreciate ongoing surgical management - agree with NPO, will d/c ice chips as this is making her pain worse and just use sponge to wet lips and mouth -Zosyn 3.375 g IV every 8 -Tylenol IV for pain control, patient wishes to avoid opioids due to allergic reactions in the past. -Anti-emetics ordered. -Repeat CBC in AM, fortunately WBC resolved with IV antibiotics and NPO status (2) Depression: Plan: -Hold duloxetine 30 mg daily as not yet able to tolerate PO intake. (3) GERD (gastroesophageal reflux disease): Plan: -Famotidine switched to IV while unable to take PO (4) History of breast cancer: Plan: -Patient has LUE edema, hold Lasix due to currently low normal BP -S/P b/l mastectomy. Plan: -Admit to med/surg. -SCDs, lovenox for DVT ppx. -Full Code. Admission and Anticipated Discharge Date Admission Date: November 21, 2021 Subjective No significant change in pain. Notices worsening pain even with ice. No fever or chills. No diarrhea. No nausea or vomiting. Review of Systems Review of Systems: All systems reviewed & are unremarkable except as noted in Subjective Physical Exam Constitutional: WD/WN, vitals as above Respiratory: normal respiratory effort, lungs clear to auscultation Cardiovascular: RRR, no murmur, no edema Gastrointestinal (Abdomen): Inspection/Auscultation: normal bowel sounds Percussion/Palpation: + abdomen tender (lower abdomen with rebound tenderness), + guarding and abdomen soft; abdomen not rigid Musculoskeletal: no cyanosis or clubbing, extremities motor strength 5/5 Skin: no rashes, warm and dry Neurologic: moves all extremities and awake; not confused Psychiatric: A+Ox3, euthymic affect Results & Data Results & Data ([facility]) Vital Signs (Past 12 Hours) Vital Signs Temp Resp BP Pulse Ox 11/22/21 07:43 36.9 C 17 104/70 94 PG Care Time/CCT Total # of Minutes Spent Total Time Spent with Patient: Total time spent is greater than 50% in coordination of care (as documented) at patient's floor/unit and/or counseling patient: Coding Level of Care Code 72764 Subseq Hosp Care Lvl 2 Diagnoses Sigmoid diverticulitis K57.32 Depression F32.9 GERD (gastroesophageal reflux disease) K21.9 History of breast cancer Z85.3
[2021-11-22] MEDS: KETOROLAC TROMETHAMINE 15 MG/ML VIAL IV PRN (16:27)
[2021-11-22] MEDS: ACETAMINOPHEN 1000 MG/100 ML IV IV PRN (21:00)
[2021-11-22] MEDS: ENOXAPARIN INJ 40 MG/0.4 ML SYR SQ SCH (21:09)
[2021-11-23] MEDS: LACTATED RINGER'S 1,000 ML IV SCH ×2 (04:27→19:13)
[2021-11-23] MEDS: PIPERACILLIN/TAZOBACTAM 3.375 GM in DEXTROSE 5% 100 ML IV SCH ×3 (05:33→21:01)
[2021-11-23 06:44] LABS: Basophils # (auto) 0.02 K/uL (0-0.2); Basophils % (auto) 0.3 %; Eosinophils # (auto) 0.22 K/uL (0-0.5); Eosinophils % (auto) 3.7 %; Hematocrit (blood only) 35.8 % (37-47); Hemoglobin 12.2 g/dL (12.0-16.0); Immature Granulocytes # (auto) 0.01 K/uL (0.00-0.02); Immature Granulocytes % (auto) 0.2 %; Lymphocytes # (auto) 1.07 K/uL (1.2-3.4); Lymphocytes % (auto) 18.1 %; Mean Corpuscular Hemoglobin 29.5 pg (25-34); Mean Corpuscular Hgb Conc 34.1 g/dL (32-36); Mean Corpuscular Volume 86.5 fL (80-100); Mean Platelet Volume 10.4 fL (7.4-10.4); Monocytes % (auto) 8.4 %; Neutrophils % (auto) 69.3 %; Platelet Count 169 K/uL (130-400); RDW Coefficient of Variation 12.6 % (11.5-14.5); RDW Standard Deviation 40.1 fL (36.4-46.3); Red Blood Count 4.14 M/uL (4.2-5.4); White Blood Count 5.92 K/uL (4.8-10.8)
[2021-11-23 07:08] LABS: BUN Creatinine Ratio 13.3 (10-20); Calcium 8.3 mg/dl (8.5-10.1); Creatinine Clr Calc Pharmacy 88.4 ml/min; Est GFR (African American) 101.1 ml/min; Est GFR (Non-African American) 87.2 ml/min; Potassium 3.8 mmol/L (3.5-5.1)
[2021-11-23] MEDS: DULoxetine HCL 30 MG CAP PO SCH (07:31)
[2021-11-23] MEDS: FAMOTIDINE 20 MG in SYRINGE 3 ML IV SCH (09:20)
[2021-11-23] MEDS: KETOROLAC TROMETHAMINE 15 MG/ML VIAL IV PRN (09:20)
--- NOTE | 2021-11-23 10:57 | Surgery Progress Note ---
Date of Service November 23, 2021 Assessment & Plan (1) Sigmoid diverticulitis: Plan: Patient here with sigmoid diverticulitis with microperforation WBC 5.9, VSS and pt afebrile Still having some abdominal discomfort Recommend continuing on ice/sips for today given symptoms Continue IV abx Will follow as above. no real improvement yet but has only been 24 hours. continue NPO/IV antibiotics. no urgent indication for surgery. Admission and Anticipated Discharge Date Admission Date: November 21, 2021 Subjective Patient says she is feeling crappy this AM. Still having some belly pain. Physical Exam Physical Exam: awake/alert, no distress Gastrointestinal (Abdomen): Percussion/Palpation: + abdomen tender and abdomen soft Results & Data ([facility]) Vital Signs (Past 12 Hours) Vital Signs Temp Pulse Resp BP Pulse Ox 11/23/21 07:08 36.8 C 74 16 115/75 96 PG Care Time/CCT Total # of Minutes Spent Total Time Spent with Patient: Total time spent is greater than 50% in coordination of care (as documented) at patient's floor/unit and/or counseling patient: Coding Level of Care Code 00949 Subseq Hosp Care Lvl 3 Diagnoses Sigmoid diverticulitis K57.32
--- NOTE | 2021-11-23 15:28 | Hospitalist Progress Note ---
Date of Service November 23, 2021 Assessment & Plan (1) Sigmoid diverticulitis: Plan: -Failed outpatient Augmentin. -Appreciate ongoing surgical management - continue NPO, patient is clinically stable (but not improving with signifiant rebound tenderness present since ad mission) with WBC improving. If clinically not improving by tomorrow will consider repeat CT -May need to consider TPN if she has to remain NPO tomorrow -Continue Zosyn 3.375 g IV every 8 -Tylenol IV for pain control, patient wishes to avoid opioids due to allergic reactions in the past. -Anti-emetics ordered. -Repeat CBC in AM (2) Depression: Plan: -Hold duloxetine 30 mg daily as not yet able to tolerate PO intake. (3) GERD (gastroesophageal reflux disease): Plan: -Famotidine switched to IV while unable to take PO (4) History of breast cancer: Plan: -Patient has LUE edema, hold Lasix due to currently low normal BP -S/P b/l mastectomy. Plan: -Continued admission to med/surg. -SCDs, lovenox for DVT ppx. -Full Code. Admission and Anticipated Discharge Date Admission Date: November 21, 2021 Subjective Ongoing abdominal pain, no worse or better. No longer on ice chips as this was exacerbating pain. No nasuea or vomiting. WBC improving. Review of Systems Review of Systems: All systems reviewed & are unremarkable except as noted in Subjective Physical Exam Constitutional: WD/WN, vitals as above Respiratory: normal respiratory effort, lungs clear to auscultation Cardiovascular: RRR, no murmur, no edema Gastrointestinal (Abdomen): Inspection/Auscultation: normal bowel sounds Percussion/Palpation: + abdomen tender (lower abdomen with rebound tenderness (throughout), worse LLQ), + guarding and abdomen soft; abdomen not rigid Musculoskeletal: no cyanosis or clubbing, extremities motor strength 5/5 Skin: no rashes, warm and dry Neurologic: moves all extremities and awake; not confused Psychiatric: A+Ox3, euthymic affect Results & Data Results & Data ([facility]) Vital Signs (Past 12 Hours) Vital Signs Temp Pulse Resp BP Pulse Ox 11/23/21 14:54 36.9 C 69 16 118/77 97 11/23/21 07:08 36.8 C 74 16 115/75 96 PG Care Time/CCT Total # of Minutes Spent Total Time Spent with Patient: Total time spent is greater than 50% in coordination of care (as documented) at patient's floor/unit and/or counseling patient: Coding Level of Care Code 25206 Subseq Hosp Care Lvl 2 Diagnoses Sigmoid diverticulitis K57.32 Depression F32.9 GERD (gastroesophageal reflux disease) K21.9 History of breast cancer Z85.3
[2021-11-23] MEDS: ACETAMINOPHEN 1000 MG/100 ML IV IV PRN (19:14)
[2021-11-23] MEDS: ENOXAPARIN INJ 40 MG/0.4 ML SYR SQ SCH (21:00)
[2021-11-23] MEDS: DICLOFENAC SOD 1% GEL 100 GM TUBE EXT PRN (21:08)
[2021-11-24] MEDS: PIPERACILLIN/TAZOBACTAM 3.375 GM in DEXTROSE 5% 100 ML IV SCH ×3 (06:09→21:05)
[2021-11-24] MEDS: LACTATED RINGER'S 1,000 ML IV SCH (06:10)
[2021-11-24 07:46] LABS: Basophils # (auto) 0.02 K/uL (0-0.2); Basophils % (auto) 0.3 %; Eosinophils # (auto) 0.18 K/uL (0-0.5); Eosinophils % (auto) 3.1 %; Hematocrit (blood only) 39.1 % (37-47); Hemoglobin 13.4 g/dL (12.0-16.0); Immature Granulocytes # (auto) 0.01 K/uL (0.00-0.02); Immature Granulocytes % (auto) 0.2 %; Lymphocytes # (auto) 1.38 K/uL (1.2-3.4); Lymphocytes % (auto) 23.7 %; Mean Corpuscular Hemoglobin 29.3 pg (25-34); Mean Corpuscular Hgb Conc 34.3 g/dL (32-36); Mean Corpuscular Volume 85.4 fL (80-100); Mean Platelet Volume 11.2 fL (7.4-10.4); Monocytes # (auto) 0.39 K/uL (0.11-0.59); Monocytes % (auto) 6.7 %; Neutrophils # (auto) 3.85 K/uL (1.4-6.5); Platelet Count 246 K/uL (130-400); RDW Coefficient of Variation 12.5 % (11.5-14.5); Red Blood Count 4.58 M/uL (4.2-5.4); White Blood Count 5.83 K/uL (4.8-10.8)
[2021-11-24] MEDS: FAMOTIDINE 20 MG in SYRINGE 3 ML IV SCH (08:10)
[2021-11-24] MEDS: DULoxetine HCL 30 MG CAP PO SCH (08:11)
[2021-11-24 08:15] LABS: BUN Creatinine Ratio 13.2 (10-20); Calcium 8.8 mg/dl (8.5-10.1); Creatinine Clr Calc Pharmacy 97.5 ml/min; Est GFR (Non-African American) 95.7 ml/min; Potassium 3.7 mmol/L (3.5-5.1)
[2021-11-24] MEDS ORDERED: CARBOHYDRATES FOR HYPOGLYCEMIA PO PRN (09:00)
[2021-11-24] MEDS ORDERED: GLUCOSE 10 TABS/TUBE PO PRN (09:00)
[2021-11-24] MEDS ORDERED: DEXTROSE 50% 50 ML SYRINGE IV PRN (09:00)
[2021-11-24] MEDS ORDERED: GLUCAGON FOR INJ 1 MG VIAL SQ PRN (09:00)
[2021-11-24] MEDS ORDERED: GLUCOSE 40% GEL 15 GM TUBE PO PRN (09:00)
--- NOTE | 2021-11-24 09:13 | Hospitalist Progress Note ---
Date of Service November 24, 2021 Assessment & Plan (1) Sigmoid diverticulitis: Plan: -Failed outpatient Augmentin. -Appreciate ongoing surgical management - continue NPO, agree with ice chips and sips ok given abdominal pain improving -Continue Zosyn 3.375 g IV every 8 -Tylenol IV for pain control, Toradol PRN, patient wishes to avoid opioids due to allergic reactions in the past. -Anti-emetics ordered. (2) Hypoglycemia: Plan: Agree with change of IV fluids as ordered by surgery D5W 0.5NSS + 20 meq KCl. Suspect mild anion gap today from starvation ketosis. (3) Depression: Plan: -Restart duloxetine 30 mg daily (4) GERD (gastroesophageal reflux disease): Plan: -Famotidine switched to IV, will switch back to PO once able to take clear liquids (5) History of breast cancer: Plan: -Patient has LUE edema, hold Lasix due to currently low normal BP -S/P b/l mastectomy. Plan: -Continued admission to med/surg. -SCDs, lovenox for DVT ppx. -Full Code. Admission and Anticipated Discharge Date Admission Date: November 21, 2021 Subjective Fortunately she appears to be making some progress today. Abdominal pain less than yesterday. No fever, chills, nausea or vomiting. Review of Systems Review of Systems: All systems reviewed & are unremarkable except as noted in Subjective Physical Exam Constitutional: WD/WN, vitals as above Respiratory: normal respiratory effort, lungs clear to auscultation Cardiovascular: RRR, no murmur, no edema Gastrointestinal (Abdomen): Inspection/Auscultation: normal bowel sounds Percussion/Palpation: + abdomen tender (lower abdomen with rebound tenderness, significantly improved since yesterd), + guarding and abdomen soft; abdomen not rigid Neurologic: moves all extremities and awake; not confused Psychiatric: A+Ox3, euthymic affect Results & Data Results & Data ([facility]) Vital Signs (Past 12 Hours) Vital Signs Temp Pulse Resp BP Pulse Ox 11/24/21 06:47 36.5 C 70 16 116/73 96 11/23/21 21:58 36.6 C 63 16 114/70 96 PG Care Time/CCT Total # of Minutes Spent Total Time Spent with Patient: Total time spent is greater than 50% in coordination of care (as documented) at patient's floor/unit and/or counseling patient: Coding Level of Care Code 01915 Subseq Hosp Care Lvl 2 Diagnoses Sigmoid diverticulitis K57.32 Depression F32.9 GERD (gastroesophageal reflux disease) K21.9 History of breast cancer Z85.3 Hypoglycemia E16.2
--- NOTE | 2021-11-24 09:15 | Surgery Progress Note ---
Date of Service November 24, 2021 Assessment & Plan (1) Diverticulitis: Plan: She is improving clinically however still quite tender. I would recommend continued p.o. another 24 hours. Continue IV antibiotics. Admission and Anticipated Discharge Date Admission Date: November 21, 2021 Subjective Patient seen. Still having suprapubic pain but much improved from yesterday. No new complaints Physical Exam Constitutional: WD/WN, vitals as above no acute distress and not ill appearing Eyes: PERRL, conjunctivae normal, anicteric sclerae EOM intact bilaterally ENMT: external ear and nose normal, oropharynx normal Ears: no hearing impairment Neck: trachea midline, no thyromegaly Respiratory: normal respiratory effort; no respiratory distress and does not use accessory muscles Cardiovascular: Rate/Rhythm: regular rate and regular rhythm Gastrointestinal (Abdomen): Soft. Positive suprapubic tenderness. No peritonitis. Skin: no rashes, warm and dry Psychiatric: Orientation: alert, oriented x 3 and cooperative Results & Data ([facility]) Vital Signs (Past 12 Hours) Vital Signs Temp Pulse Resp BP Pulse Ox 11/24/21 06:47 36.5 C 70 16 116/73 96 11/23/21 21:58 36.6 C 63 16 114/70 96 PG Care Time/CCT Total # of Minutes Spent Total Time Spent with Patient: Total time spent is greater than 50% in coordination of care (as documented) at patient's floor/unit and/or counseling patient: Coding Level of Care Code 85773 Subseq Hosp Care Lvl 2 Diagnoses Diverticulitis K57.92
[2021-11-24] MEDS: D5W AND 1/2NSS + 20MEQ KCL 20 MEQ/1,000 ML BAG IV SCH ×2 (09:45→17:24)
[2021-11-24] MEDS: DICLOFENAC SOD 1% GEL 100 GM TUBE EXT PRN (21:00)
[2021-11-24] MEDS: ACETAMINOPHEN 325 MG TAB PO PRN (21:01)
[2021-11-24] MEDS: ENOXAPARIN INJ 40 MG/0.4 ML SYR SQ SCH (21:02)
[2021-11-25] MEDS: D5W AND 1/2NSS + 20MEQ KCL 20 MEQ/1,000 ML BAG IV SCH ×3 (01:26→18:20)
[2021-11-25] MEDS: PIPERACILLIN/TAZOBACTAM 3.375 GM in DEXTROSE 5% 100 ML IV SCH ×3 (06:18→21:57)
--- NOTE | 2021-11-25 06:48 | Surgery Progress Note ---
Date of Service November 25, 2021 Assessment & Plan (1) Diverticulitis: Plan: Should advance to clear liquids If she does not tolerate will need PPN Continue IV antibiotics Possible reimaging but I do not feel it is necessary at the present time We will advance diet slowly Admission and Anticipated Discharge Date Admission Date: November 21, 2021 Subjective Patient awake and alert with some lower abdominal discomfort but some improvement Passing flatus Review of Systems Review of Systems: All systems reviewed & are unremarkable except as noted in HPI & below Physical Exam Physical Exam: Patient awake and alert Has mild tenderness in the lower abdomen Active bowel sounds Results & Data ([facility]) Vital Signs (Past 12 Hours) Vital Signs Temp Pulse Resp BP Pulse Ox 11/24/21 22:07 37.1 C 64 16 127/61 95 PG Care Time/CCT Total # of Minutes Spent Total Time Spent with Patient: Total time spent is greater than 50% in coordination of care (as documented) at patient's floor/unit and/or counseling patient: Coding Level of Care Code 82139 Subseq Hosp Care Lvl 2 Diagnoses Diverticulitis K57.92
[2021-11-25 06:55] LABS: BUN Creatinine Ratio 6.4 (10-20); Calcium 8.6 mg/dl (8.5-10.1); Est GFR (African American) 96.4 ml/min; Est GFR (Non-African American) 83.2 ml/min; Potassium 3.7 mmol/L (3.5-5.1)
[2021-11-25] MEDS: FAMOTIDINE 20 MG in SYRINGE 3 ML IV SCH (08:43)
[2021-11-25] MEDS: DULoxetine HCL 30 MG CAP PO SCH (08:43)
--- NOTE | 2021-11-25 17:31 | Hospitalist Progress Note ---
Date of Service November 25, 2021 Assessment & Plan (1) Sigmoid diverticulitis: Plan: -Failed outpatient Augmentin. -Appreciate ongoing surgical management - start clear liquid diet today -Continue Zosyn 3.375 g IV every 8 -Tylenol IV for pain control, Toradol PRN, patient wishes to avoid opioids due to allergic reactions in the past. -Anti-emetics ordered. (2) Hypoglycemia: Plan: Agree with change of IV fluids as ordered by surgery D5W 0.5NSS + 20 meq KCl. Suspect mild anion gap today from starvation ketosis. (3) Depression: Plan: -Restart duloxetine 30 mg daily (4) GERD (gastroesophageal reflux disease): Plan: -Famotidine switch back to PO tomorrow (5) History of breast cancer: Plan: -Patient has LUE edema, hold Lasix due to currently low normal BP -S/P b/l mastectomy. Plan: -Continued admission to med/surg. -SCDs, lovenox for DVT ppx. -Full Code. Admission and Anticipated Discharge Date Admission Date: November 21, 2021 Subjective Abdominal pain much improved. Had a bowel movement. No nausea or vomiting. Tolerating small amounts of clear liquid diet this morning. Review of Systems Review of Systems: All systems reviewed & are unremarkable except as noted in Subjective Physical Exam Constitutional: WD/WN, vitals as above Gastrointestinal (Abdomen): Inspection/Auscultation: normal bowel sounds Percussion/Palpation: + abdomen tender (much improved lower abdominal tenderness) and abdomen soft; no guarding and abdomen not rigid Neurologic: moves all extremities and awake; not confused Psychiatric: A+Ox3, euthymic affect Results & Data Results & Data ([facility]) Vital Signs (Past 12 Hours) Vital Signs Temp Pulse Resp BP Pulse Ox 11/25/21 15:47 36.8 C 71 16 127/66 94 11/25/21 07:31 36.5 C 58 L 16 117/76 96 PG Care Time/CCT Total # of Minutes Spent Total Time Spent with Patient: Total time spent is greater than 50% in coordination of care (as documented) at patient's floor/unit and/or counseling patient: Coding Level of Care Code 88638 Subseq Hosp Care Lvl 2 Diagnoses Sigmoid diverticulitis K57.32 Hypoglycemia E16.2 Depression F32.9 GERD (gastroesophageal reflux disease) K21.9 History of breast cancer Z85.3
[2021-11-25] MEDS: ENOXAPARIN INJ 40 MG/0.4 ML SYR SQ SCH (20:15)
[2021-11-26] MEDS: D5W AND 1/2NSS + 20MEQ KCL 20 MEQ/1,000 ML BAG IV SCH (00:40)
[2021-11-26] MEDS: PIPERACILLIN/TAZOBACTAM 3.375 GM in DEXTROSE 5% 100 ML IV SCH ×3 (06:29→21:50)
--- NOTE | 2021-11-26 06:54 | Surgery Progress Note ---
Date of Service November 26, 2021 Assessment & Plan (1) Diverticulitis: Plan: Advance to full liquids and then low fiber Continue IV antibiotics Possible discharge 1 to 2 days depending on progress Admission and Anticipated Discharge Date Admission Date: November 21, 2021 Subjective Tolerating clear liquids with some loose bowel movement Slow improvement in symptoms Results & Data ([facility]) Vital Signs (Past 12 Hours) Vital Signs Temp Pulse Resp BP Pulse Ox 11/25/21 22:58 36.8 C 63 18 104/67 96 PG Care Time/CCT Total # of Minutes Spent Total Time Spent with Patient: Total time spent is greater than 50% in coordination of care (as documented) at patient's floor/unit and/or counseling patient: Coding Level of Care Code 60830 Subseq Hosp Care Lvl 2 Diagnoses Diverticulitis K57.92
--- NOTE | 2021-11-26 08:39 | Hospitalist Progress Note ---
Date of Service November 26, 2021 Assessment & Plan (1) Sigmoid diverticulitis: Plan: -Failed outpatient Augmentin. -Appreciate ongoing surgical management - start full liquid diet today -Continue Zosyn 3.375 g IV every 8 -Tylenol IV for pain control, Toradol PRN, patient wishes to avoid opioids due to allergic reactions in the past. -Anti-emetics ordered. (2) Hypoglycemia: Plan: Agree with change of IV fluids as ordered by surgery D5W 0.5NSS + 20 meq KCl. Suspect mild anion gap today from starvation ketosis. (3) Depression: Plan: -Restarted duloxetine 30 mg daily (4) GERD (gastroesophageal reflux disease): Plan: -Famotidine PO 20mg daily (5) History of breast cancer: Plan: -Patient has LUE edema, hold Lasix due to currently low normal BP -S/P b/l mastectomy. Plan: -Continued admission to med/surg. -SCDs, lovenox for DVT ppx. -Full Code. Admission and Anticipated Discharge Date Admission Date: November 21, 2021 Subjective Improving abdominal pain daily. No nausea or vomiting. Tolerating full liquid diet. Review of Systems Review of Systems: All systems reviewed & are unremarkable except as noted in Subjective Physical Exam Constitutional: WD/WN, vitals as above Gastrointestinal (Abdomen): Inspection/Auscultation: normal bowel sounds Percussion/Palpation: + abdomen tender (mild lower without guarding or rebound) and abdomen soft; no guarding and abdomen not rigid Neurologic: moves all extremities and awake; not confused Psychiatric: A+Ox3, euthymic affect Results & Data Results & Data ([facility]) Vital Signs (Past 12 Hours) Vital Signs Temp Pulse Resp BP Pulse Ox 11/26/21 07:56 36.7 C 59 L 18 103/61 97 11/25/21 22:58 36.8 C 63 18 104/67 96 PG Care Time/CCT Total # of Minutes Spent Total Time Spent with Patient: Total time spent is greater than 50% in coordination of care (as documented) at patient's floor/unit and/or counseling patient: Coding Level of Care Code 17637 Subseq Hosp Care Lvl 1 Diagnoses Sigmoid diverticulitis K57.32 Hypoglycemia E16.2 Depression F32.9 GERD (gastroesophageal reflux disease) K21.9 History of breast cancer Z85.3
[2021-11-26] MEDS: DULoxetine HCL 30 MG CAP PO SCH (08:49)
[2021-11-26] MEDS: FAMOTIDINE 20 MG TAB PO SCH (08:54)
[2021-11-26] MEDS: ENOXAPARIN INJ 40 MG/0.4 ML SYR SQ SCH (20:50)
[2021-11-26] MEDS: ACETAMINOPHEN 325 MG TAB PO PRN (20:53)
[2021-11-27] MEDS: PIPERACILLIN/TAZOBACTAM 3.375 GM in DEXTROSE 5% 100 ML IV SCH ×3 (05:57→21:54)
[2021-11-27] MEDS: ACETAMINOPHEN 325 MG TAB PO PRN (06:01)
[2021-11-27 07:23] LABS: Basophils # (auto) 0.04 K/uL (0-0.2); Basophils % (auto) 0.8 %; Eosinophils # (auto) 0.26 K/uL (0-0.5); Eosinophils % (auto) 5.5 %; Hematocrit (blood only) 38.9 % (37-47); Hemoglobin 13.2 g/dL (12.0-16.0); Immature Granulocytes # (auto) 0.02 K/uL (0.00-0.02); Immature Granulocytes % (auto) 0.4 %; Lymphocytes # (auto) 1.64 K/uL (1.2-3.4); Lymphocytes % (auto) 34.5 %; Mean Corpuscular Hemoglobin 29.7 pg (25-34); Mean Corpuscular Hgb Conc 33.9 g/dL (32-36); Mean Corpuscular Volume 87.4 fL (80-100); Mean Platelet Volume 10.6 fL (7.4-10.4); Monocytes # (auto) 0.37 K/uL (0.11-0.59); Monocytes % (auto) 7.8 %; Neutrophils # (auto) 2.42 K/uL (1.4-6.5); Platelet Count 271 K/uL (130-400); RDW Coefficient of Variation 13.3 % (11.5-14.5); RDW Standard Deviation 42.7 fL (36.4-46.3); Red Blood Count 4.45 M/uL (4.2-5.4); White Blood Count 4.75 K/uL (4.8-10.8)
--- NOTE | 2021-11-27 07:37 | Surgery Progress Note ---
Date of Service November 27, 2021 Assessment & Plan Plan: We will advance to low fiber diet Has information for home-low fiber diet Continue IV antibiotics Possible discharge home tomorrow on Augmentin for additional 10 days Patient will need a colonoscopy -6 to 8 weeks Admission and Anticipated Discharge Date Admission Date: November 21, 2021 Subjective Tolerating full liquids Feeling pretty well No acute changes Physical Exam Physical Exam: Mild distention No worsening tenderness Overall improved Results & Data ([facility]) Vital Signs (Past 12 Hours) Vital Signs Temp Pulse Resp BP Pulse Ox 11/26/21 22:35 36.7 C 63 18 105/68 97 PG Care Time/CCT Total # of Minutes Spent Total Time Spent with Patient: Total time spent is greater than 50% in coordination of care (as documented) at patient's floor/unit and/or counseling patient: Coding Level of Care Code 88597 Subseq Hosp Care Lvl 2
[2021-11-27 07:52] LABS: Calcium 9.3 mg/dl (8.5-10.1); Creatinine Clr Calc Pharmacy 77.1 ml/min; Est GFR (African American) 85.7 ml/min; Est GFR (Non-African American) 73.9 ml/min; Potassium 3.9 mmol/L (3.5-5.1)
[2021-11-27] MEDS: FAMOTIDINE 20 MG TAB PO SCH (09:03)
[2021-11-27] MEDS: DULoxetine HCL 30 MG CAP PO SCH (09:03)
--- NOTE | 2021-11-27 18:10 | Hospitalist Progress Note ---
Date of Service November 27, 2021 Assessment & Plan (1) Sigmoid diverticulitis: Plan: -Failed outpatient Augmentin. -Appreciate ongoing surgical management - start full low fiber diet today -Continue Zosyn 3.375 g IV every 8 -Tylenol IV for pain control, Toradol PRN, patient wishes to avoid opioids due to allergic reactions in the past. -Anti-emetics ordered. (2) Hypoglycemia: Plan: Resolved now eating (3) Depression: Plan: -Restarted duloxetine 30 mg daily (4) GERD (gastroesophageal reflux disease): Plan: -Famotidine PO 20mg daily (5) History of breast cancer: Plan: -Patient has LUE edema, hold Lasix due to currently low normal BP -S/P b/l mastectomy. Plan: -Continued admission to med/surg. -SCDs, lovenox for DVT ppx. -Full Code. Admission and Anticipated Discharge Date Admission Date: November 21, 2021 Subjective Mild increase in abdominal pain after breakfast this morning as her first full meal, did much better with lunch without increase in abdominal pain. No nausea, vomiting. Diarrhea continues right after eating. Review of Systems Review of Systems: All systems reviewed & are unremarkable except as noted in Subjective Physical Exam Constitutional: WD/WN, vitals as above Respiratory: normal respiratory effort, lungs clear to auscultation Cardiovascular: RRR, no murmur, no edema Gastrointestinal (Abdomen): Inspection/Auscultation: normal bowel sounds Percussion/Palpation: + abdomen tender (mild lower without guarding or rebound, worse since yesterday) and abdomen soft; no guarding and abdomen not rigid Musculoskeletal: no cyanosis or clubbing, extremities motor strength 5/5 Skin: no rashes, warm and dry Neurologic: moves all extremities and awake; not confused Psychiatric: A+Ox3, euthymic affect Results & Data Results & Data ([facility]) Vital Signs (Past 12 Hours) Vital Signs Temp Pulse Resp BP Pulse Ox 11/27/21 16:00 36.7 C 69 18 106/66 95 11/27/21 07:33 36.7 C 65 18 119/80 96 PG Care Time/CCT Total # of Minutes Spent Total Time Spent with Patient: Total time spent is greater than 50% in coordination of care (as documented) at patient's floor/unit and/or counseling patient: Coding Level of Care Code 72875 Subseq Hosp Care Lvl 2 Diagnoses Sigmoid diverticulitis K57.32 Hypoglycemia E16.2 Depression F32.9 GERD (gastroesophageal reflux disease) K21.9 History of breast cancer Z85.3
[2021-11-27] MEDS: ENOXAPARIN INJ 40 MG/0.4 ML SYR SQ SCH (20:13)
[2021-11-28] MEDS: PIPERACILLIN/TAZOBACTAM 3.375 GM in DEXTROSE 5% 100 ML IV SCH (05:37)
--- NOTE | 2021-11-28 07:21 | Surgery Progress Note ---
Date of Service November 28, 2021 Assessment & Plan (1) Diverticulitis: Plan: Stable for discharge from surgical standpoint P.o. antibiotics for 10 to 14 days-Augmentin okay from my standpoint Can see her in the office in 2 to 3 weeks We will rescan her at some point probably 3 to 4 weeks unless worsening Admission and Anticipated Discharge Date Admission Date: November 21, 2021 Subjective Patient's vital signs are stable Using minimal pain medication Tolerating her diet Physical Exam Physical Exam: Awake and alert in no distress Some mild discomfort to deep palpation in the lower abdomen which is not unexpected Results & Data ([place]) Vital Signs (Past 12 Hours) Vital Signs Temp Pulse Resp BP Pulse Ox 11/27/21 22:31 36.8 C 66 18 98/61 L 97 PG Care Time/CCT Total # of Minutes Spent Total Time Spent with Patient: Total time spent is greater than 50% in coordination of care (as documented) at patient's floor/unit and/or counseling patient: Coding Level of Care Code 35795 Subseq Hosp Care Lvl 2 Diagnoses Diverticulitis K57.92
[2021-11-28] MEDS: FAMOTIDINE 20 MG TAB PO SCH (08:57)
[2021-11-28] MEDS: DULoxetine HCL 30 MG CAP PO SCH (11:17)
--- NOTE | 2021-11-28 14:51 | Discharge Summary ---
Date of Service November 28, 2021 Admission HPI Per Admitting Provider Patient is a 61-year-old female with a past medical history of depression/anxiety, GERD, breast cancer in 2013 s/p b/l mastectomy with chronic lymphedema and diverticulitis diagnosed in our ED on 11/16 presents with worsening symptoms. Patient was seen here on 11/16 for abdominal pain, CT revealed sigmoid diverticulitis without perforation or abscess. She was given IVF, IV Zofran, IV Zosyn and discharged from ED on Augmentin, also instructed to remain on clear liquid diet for the next several days. Since then, she has been taking her antibiotics with yogurt and sticking to a liquid diet with minimal improvement Yesterday, she experienced severe cramping sensation across her abdomen. Last evening, she felt very cold and could not get warm with multiple layers of clothing on. She took a temperature around 1 AM, measured at 101.5. This afternoon seemingly out of nowhere she vomited several times, which prompted her presentation to ED for further evaluation. Feels she may have noticed some blood in her stool over the past several days, she reports to have been pretty dark and tarry. She is otherwise without symptoms, no chest pain/palpitations, shortness of breath, cough, diarrhea, constipation, overt hematochezia or hematemesis. In ED, VS stable, wnl. Labs significant for WBC 11.31, otherwise unremarkable. CT A/P showed mild interval worsening of acute sigmoid diverticulitis with increasing inflammatory changes in. Sigmoidal edema and fluid. Minimal extraluminal air is seen at this site with no evidence for additional free air or abscess formation. No free pelvic ascites is identified. Surgery was consulted due to concern for microperforation, hospitalist service consulted for further evaluation and admission. Principal Diagnosis sigmoid diverticulitis Discharge Exam Constitutional WD/WN, vitals as above Respiratory normal respiratory effort, lungs clear to auscultation Cardiovascular RRR, no murmur, no edema Gastrointestinal (Abdomen) Inspection/Auscultation: normal bowel sounds Percussion/Palpation: + abdomen tender (DECREASED Abd. tenderness) and abdomen soft; no guarding and abdomen not rigid Musculoskeletal no cyanosis or clubbing, extremities motor strength 5/5 Skin no rashes, warm and dry Neurologic moves all extremities and awake; not confused Psychiatric A+Ox3, euthymic affect Discharge Data Allergies Allergy/AdvReac Type Severity Reaction Status Date / Time codeine Allergy Unknown ANAPHYLAXIS Verified 11/21/21 16:44 opium tincture Allergy Unknown "BREATHING Verified 11/21/21 16:44 PASSAGE SHUT DOWN" Consultations 11/21/21 16:38 ED Decision to Admit Stat Ordered Studies 11/21/21 15:12 CT abd pelvis IV con only Stat Hospital Course (1) Sigmoid diverticulitis: -Failed outpatient Augmentin. -Appreciate ongoing surgical management - start full low fiber diet today -Continue Zosyn 3.375 g IV every 8 -Tylenol IV for pain control, Toradol PRN, patient wishes to avoid opioids due to allergic reactions in the past. -Anti-emetics ordered. As patient improved on 11/28 decreased pain, tolerating diet, will discharge on 10 more days of antibiotics. (2) Hypoglycemia: Resolved now eating (3) Depression: -Restarted duloxetine 30 mg daily (4) GERD (gastroesophageal reflux disease): -Famotidine PO 20mg daily (5) History of breast cancer: -Patient has LUE edema, hold Lasix due to currently low normal BP -S/P b/l mastectomy. -Continued admission to med/surg. -SCDs, lovenox for DVT ppx. -Full Code. Total Time Total Time Spent Total Time Spent (In Minutes): 32 Discharge Plan Discharge Items Patient Disposition: Home - Self-Care Reason For Visit: DIVERTICULITIS FAILED OUTPT [place] Discharge Diagnosis: diverticulitis Activity: Resume your previous activity Non-emergency contact: Primary Care Provider Call non-emergency contact if: you have any medication questions Follow-up/Referrals: Florin Robbins MD, FACS [Physician] - 12/12/21 10:15 am (Please call to schedule follow up in clinic within 2 weeks) Rodolfo Trinidad MD [Primary Care Provider] - 12/04/21 8:30 am Diet: Low Fiber Addtl Attending Provider Instructions: You have been hospitalized for an acute medical problem. During your stay at [facility], we have made an effort to correct the problem that brought you to the hospital while keeping you as comfortable as possible. Medications were used to bring your condition under control and your discharge instructions will include directions for any medications you should take after leaving the hospital. Please make sure you see your Primary Care Provider as part of your follow up plan. Recommend followup with Dr. Robbins in 2-3 weeks Recommend followup with PCP in 1-2 weeks Continue antibiotics for 10 more days. Pending Studies at Discharge: No Stand-Alone Forms: [facility], Smoking Cessation Medications and DC Order Prescriptions: Continued duloxetine 30 mg capsule,delayed release(DR/EC) 30 mg PO DAILY Qty: 90 RF: 3 furosemide 20 mg tablet 20 mg PO QAM Qty: 90 RF: 3 ondansetron 4 mg tablet,disintegrating 4 mg PO Q6H PRN (Reason: nausea and vomiting) Qty: 20 RF: 1 famotidine 40 mg tablet 40 mg PO BID PRN (Reason: acid indigestion) Qty: 180 RF: 3 amoxicillin-pot clavulanate 875-125 mg tablet 1 tab PO BID Qty: 20 RF: 0 Discharge Orders: Discharge Order (Routine); Ordered 11/28/21 Ordered By: Joe Molina/Other Patient Handouts: Diverticulosis and Diverticulitis, Anatomy of the Digestive System, Diverticulitis Dc, ED Diverticulitis Admission Data Admit Date/Time: 11/21/21 17:03 Attending Provider: Joe Sampson Admit Provider: Tae Rai Primary Care Provider: Rodolfo Trinidad Other Providers: Tae Rai Other Interventions: Discharge Summary Assessment (RN) Last Done: 11/28/21 14:51 Coding Level of Care Code D/C DAY MANAGEMENT >30 MINS Diagnoses Sigmoid diverticulitis K57.32 Hypoglycemia E16.2 Depression F32.9 GERD (gastroesophageal reflux disease) K21.9 History of breast cancer Z85.3
== END 2021-11-28 15:26 | disposition home or self-care (01) | DRG 392 ==
LOC: ED 13:17 → 3N 17:03 → SUATTDRO 17:03 → 3N 19:58